=== PATIENT | male | born 1985 | race Caucasian/White ===

== ENCOUNTER 2016-11-25 16:00 | Inpatient (IN) | payer OTHER ==
[~2016-11-25] VITALS: Ht 170.2 cm; Wt 55.3 kg
--- NOTE | ~2016-11-25 | HP ---
Unit #: [id number] #: [id number] Patient: ROMA GARIBAY [id number] [facility] [address] [place] [address] [id number] MR#: [id number] NAME: ROMA GARIBAY ROOM: P110 Age: 31 Sex: M Admission Date: 11/25/2016 : 1985 Attending Physician: Erica Montenegro M.D. Admitting Physician: Erica Montenegro M.D. Primary Care Physician: Primary Care Physician No HISTORY AND PHYSICAL HISTORY OF PRESENT ILLNESS Roma is a 31 year old admitted to [address] [place] [address] with psychotic behavior. He has had other admissions to this facility. PAST MEDICAL HISTORY 1. Long history of polysubstance abuse to include alcohol and cocaine but he denies anything currently. 2. Seizure disorder. PAST SURGICAL HISTORY Nothing reported. ALLERGIES No known drug allergies. SOCIAL HISTORY He smokes 1 pack per day. Drinks alcohol on occasion. Has a history of illicit drug use but denies anything currently. FAMILY HISTORY Medically noncontributory. REVIEW OF SYSTEMS CONSTITUTIONAL: No fever or chills. HEENT: Denies any sore throat, ear pain or runny nose. CARDIOVASCULAR: Denies chest pain, irregular heart rhythm or palpitations. CHEST: Denies shortness of breath or cough. No hemoptysis. GASTROINTESTINAL: Denies nausea, vomiting, diarrhea or chronic constipation. ENDOCRINE: Denies history of increased thirst or urination. No recent significant weight loss or gain. GENITOURINARY: Denies dysuria, frequency, or hematuria. SKIN: Denies any rashes. HEMATOLOGIC: Denies history of increased bleeding or bruising. MUSCULOSKELETAL: Denies any hot, swollen joints. No generalized muscle pain. NEUROLOGIC: Denies problems with vision or speech. No frequent, severe headaches. No numbness, tingling or weakness in any extremities. Denies loss of bladder or bowel control. CURRENT MEDICATIONS 1. Risperdal 1 mg b.i.d. 2. Milk of Magnesia p.r.n. Unit #: [id number] #: [id number] Patient: ROMA GARIBAY 3. Maalox p.r.n. 4. Tylenol p.r.n. 5. Seroquel 100 mg q.h.s. 6. Neurontin 800 mg t.i.d. 7. Nicotine patch 21 mg daily. PHYSICAL EXAMINATION GENERAL: Alert, well-nourished, in no apparent distress. VITAL SIGNS: Blood pressure 110/70, heart rate 70, respirations 16, temperature 98.6. WEIGHT: 122. HEIGHT: 5 feet 7 inches. SKIN: Warm and dry without rash or lesion. HEENT: Normocephalic. TMs not viewed. Oral and nasal passages clear. Conjunctivae clear. PERRLA. EOMs intact. NECK: Supple without lymphadenopathy or thyromegaly. HEART: Regular rate and rhythm without murmur. LUNGS: Clear. ABDOMEN: Soft, nontender. : Not done. EXTREMITIES: No evidence of cyanosis, clubbing or edema. Moves all without focal deficit. NEUROLOGICAL: Grossly within normal limits. Cranial Nerves: II: Visual granado are intact. III, IV AND : Extraocular movements are intact. Pupils are equal, round and reactive to light. V: Facial sensation is grossly normal. VII: Facial movements and expression are normal. VIII: Auditory acuity grossly intact. IX, X: Uvula is midline. Phonation is normal. XI: Patient shrugs shoulders and turns head normally. XII: Tongue protrudes in the midline. Sensory and Motor Function: Sensory and motor sensation is grossly normal. Motor: moves all extremities well. Coordination: Gait is normal. Deep Tendon Reflexes: Intact. IMPRESSION Psychiatric admission. RECOMMENDATIONS PSYCHIATRIC: Per psychiatrist. MEDICAL: See no contraindication to participate in facility's activities. MEDICAL PROGNOSIS Good. MEDICAL CONDITION Stable. Dictated by... Silvia Saleh P.A.-C. for Geronimo Wang/yunier TD: 11/26/2016 18:38 JOB #: [id number] Unit #: [id number] #: [id number] Patient: ROMA GARIBAY HISTORY AND PHYSICAL Page 1 of 1 X Silvia Saleh HISTORY AND PHYSICAL
--- NOTE | ~2016-11-25 | PN ---
Unit #: [id number] #: [id number] Patient: ROMA GARIBAY [id number] [facility] [address] [place] [address] [id number] I MR#: [id number] NAME: ROMA GARIBAY ROOM: [facility] Age: 31 Sex: M Admission Date: 11/25/2016 : 1985 Attending Physician: Erica Montenegro M.D. Admitting Physician: Erica Montenegro M.D. Primary Care Physician: Primary Care Physician Mandie MONTALVO PROGRESS NOTES DATE 11/27/2016 DISCUSSION Mr. Garibay is a 31-year-old, white male who was seen today and chart was reviewed and case was discussed with the staff. He remains anxious, withdrawn and seclusive to himself with bizarre behaviors. Meanwhile, he has been taking the medication and tolerating them fairly well with no reported side effects. MENTAL STATUS EXAM Young white male who was casually dressed with fair personal hygiene, appears to be in no acute distress or discomfort. He was awake and alert on interaction with intact orientation. His mood was anxious with congruent affect. He denies any suicidal or homicidal ideation His insight and judgement remains slightly impaired. TREATMENT PLAN 1. We will continue him on his current medications and treatment protocol. We will monitor his response to the medication and make further adjustments as needed. 2. We will continue to follow up. Dictated by... Geronimo Arroyo/mariah TD: 11/29/2016 02:35 JOB #: [id number] Unit #: [id number] #: [id number] Patient: ROMA GARIBAY PROGRESS NOTES Page 1 of 1 X Erica Montenegro MD PROGRESS NOTE
--- NOTE | ~2016-11-25 | PN ---
Unit #: [id number] #: [id number] Patient: ROMA GARIBAY [id number] [facility] [address] [place] [address] [id number] MR#: [id number] NAME: ROMA GARIBAY ROOM: [facility] Age: 31 Sex: M Admission Date: 11/25/2016 : 1985 Attending Physician: Erica Montenegro M.D. Admitting Physician: Erica Montenegro M.D. Primary Care Physician: Primary Care Physician Mandie MONTALVO PROGRESS NOTES DATE 11/29/2016 DISCUSSION Mr. Beckford is a 31-year-old male, seen on 11/29/2016. The patient interviewed, chart reviewed, and obtained information from the nursing staff. The patient was pleasant and cooperative, reported still hearing voices but making progress. The patient also requested for larger portions. The patient was admitted with auditory hallucinations on November 25, the patient reports voices are still there but denied any command hallucinations, compliant with medication. No side effects to medication. REVIEW OF SYSTEMS Complete review of systems unremarkable. MENTAL STATUS EXAMINATION General appearance: Patient dressed casually. Attention span and concentration, fair. Oriented in place and person. Mood and affect, labile. Speech, monotone. Thought process, concrete. The patient denied any thoughts of harming self or others or any psychotic symptoms. Recent and remote memory, poor. Insight and judgment, poor. The patient reports hallucinations but denied any command hallucinations. DIAGNOSIS Schizophrenia, chronic paranoid type. ASSESSMENT/PLAN Advised to continue with the current medication and therapeutic protocol, and if needed consider further adjustment of medication. Dictated by... Geronimo Martines/jyotsna TD: 12/01/2016 09:05 JOB #: [id number] Unit #: [id number] #: [id number] Patient: ROMA GARIBAY PROGRESS NOTES Page 1 of 1 X Jordon Dunn MD PROGRESS NOTE
--- NOTE | ~2016-11-25 | PA ---
Unit #: [id number] #: [id number] Patient: [facility] [id number] [facility] [address] [place] [address] [id number] I MR#: [id number] NAME: ROMA GARIBAY ROOM: P110 Age: 31 Sex: M Admission Date: 11/25/2016 : 1985 Date of Assessment: 11/26/2016 Attending Physician: Erica Montenegro M.D. Admitting Physician: Erica Montenegro M.D. Primary Care Physician: Primary Care Physician No PSYCHIATRIC ASSESSMENT DATE OF SERVICE 11/26/2016. IDENTIFYING DATA Mr. Garibay is a 31-year-old single white male, who is a resident of [place], [place], and is known to me from previous encounter, was self-referred to the hospital on a voluntary basis and was accompanied by his caser from [facility]. CHIEF COMPLAINT "Suicidal ideation and my plan is to cut my wrist or run out into traffic". HISTORY OF PRESENT ILLNESS Mr. Garibay is a 31-year-old white male with history of mood disorder, who was brought to the hospital by his caser from [facility] and upon presentation, the patient reports suicidal ideation with plan to cut his wrist or run out into traffic and reports that he has not slept in 2 days because he has been having auditory and visual hallucinations over the person called Brandan and Maria Eugenia which are demons and they "tell me to hurt myself, I'm so tired, I just wanted to stop." The patient reports that he has been off his medication for the last 3 weeks and is unable to remember his pharmacy or the medication and denied any substance abuse; however, he was seen to be exhibiting increasing anger, agitation, irritability, racing thoughts, paranoid delusional behavior, auditory and visual hallucinations, and thoughts of wanting to hurt himself and hurt others and as such, recommendation for inpatient level of care for safety and stabilization was made and the patient was transferred to us. SUBSTANCE ABUSE HISTORY The patient denies any alcohol or drug abuse. PAST PSYCHIATRIC HISTORY The patient has a [facility] and review of the medical records indicate currently is not active in any treatment program, is not seeing a psychiatrist, and is not taking any psychotropic medications. PAST MEDICAL HISTORY No acute or chronic medical illnesses. ALLERGIES No known medication allergies. Unit #: [id number] #: [id number] Patient: ROMA GARIBAY CURRENT MEDICATIONS None. PERSONAL AND SOCIAL HISTORY A 31-year-old white male, who reports that he is single, unemployed, and essentially homeless and has poor social support system. MENTAL STATUS EXAMINATION Young white male, who was casually dressed with fair personal hygiene, appears to be in no acute distress or discomfort. He was awake and alert on interaction with intact orientation to time, place, and person. His mood was anxious and depressed with a congruent affect. His speech was slow and restricted in content. His thought processes were disorganized with some looseness of associations and paranoid ideations and delusional behavior. His insight and judgment remain significantly impaired. DIAGNOSTIC IMPRESSION Psychiatric: Chronic paranoid schizophrenia by history. Medical: None. Stressors: Moderate psychosocial stressors. TREATMENT PLAN 1. The patient has presented with history of mood disorder and chronic mental illness and has been decompensating and will need inpatient hospitalization for safety and stabilization. We will start him back on his home medications. We will adjust the medications and monitor response. 2. Supportive therapy was provided to the patient. 3. Safe, structured, and nourishing environment will be provided. ESTIMATED LENGTH OF STAY 5 to 7 days. ABILITY TO HELP SELF Limited. WILLINGNESS TO HELP SELF The patient appears to be willing to help self. STRENGTHS 1. Communicative. 2. Cooperative. PROBLEM LIST 1. Chronic dysphoric symptoms. 2. Poor social support system. DISCHARGE CRITERIA This will be contingent upon the patient's ability to show resolution of his depression and psychosis and his ability to stay safe to himself, particularly after discharge from the hospital. Dictated by... Erica Montenegro M.D. Unit #: [id number] #: [id number] Patient: ROMA GARIBAY IAA/modl TD: 11/26/2016 08:03 JOB #: [id number] PSYCHIATRIC ASSESSMENT Page 1 of 1 X Erica Montenegro MD PSYCHIATRIC ASSESSMENT
--- NOTE | ~2016-11-25 | PN ---
Unit #: [id number] #: [id number] Patient: ROMA GARIBAY [id number] [facility] [address] [place] [address] [id number] I MR#: [id number] NAME: ROMA GARIBAY ROOM: [facility] Age: 31 Sex: M Admission Date: 11/25/2016 : 1985 Attending Physician: Erica Montenegro M.D. Admitting Physician: Erica Montenegro M.D. Primary Care Physician: Primary Care Physician Mandie MONTALVO PROGRESS NOTES DATE November 28, 2016 DISCUSSION Mr. Garibay is a 31-year-old white male, with mood disorder and psychosis, who was seen today and chart was reviewed and the case was discussed with the staff. He has been anxious, withdrawn, and seclusive to himself. He has not shown any agitation or aggression, and has been cooperative with the treatment recommendations and he has been taking the medications and tolerating them fairly well with no reported side effects. MENTAL STATUS EXAMINATION Young white male, who was casually dressed with fair personal hygiene and appears to be in no acute distress or discomfort. He was awake and alert on interaction with intact orientation. His mood is anxious with a congruent affect. His speech is slow and goal-directed. He denies any suicidal or homicidal ideations, and also denies any auditory or visual hallucinations. His insight and judgment remain slightly impaired. TREATMENT PLAN 1. We will continue him on his current medications and treatment protocol, and will monitor his response to the medications, and make further adjustments as needed. 2. We will continue to followup. Dictated by... Geronimo Arroyo/jyotsna TD: 11/29/2016 13:17 JOB #: [id number] Unit #: [id number] #: [id number] Patient: ROMA GARIBAY PROGRESS NOTES Page 1 of 1 X Erica Montenegro MD PROGRESS NOTE
--- NOTE | ~2016-11-25 | DS ---
Unit #: [id number] #: [id number] Patient: ROMA GARIBAY [id number] [facility] [address] [place] [address] [id number] MR#: [id number] NAME: ROMA GARIBAY ROOM: [facility] Age: 31 Sex: M Admission Date: 11/25/2016 : 1985 Discharge Date: 11/30/2016 Attending Physician: Erica Montenegro M.D. Primary Care Physician: Primary Care Physician No DISCHARGE SUMMARY REASON FOR ADMISSION Hallucination. DIAGNOSTIC STUDIES LABORATORY RESULTS: Unremarkable except urine drug screen positive for amphetamine. HOSPITAL COURSE The patient was admitted to inpatient unit on 11/25/2016 and discharged on 11/30/2016. The patient was treated on the inpatient unit with group therapy, individual therapy, expressive therapy, and medication management. The patient was responsive to treatment. Subsequently, the patient was discharged with a plan to follow up in outpatient program. DISCHARGE MEDICATIONS Seroquel 100 mg at bedtime for psychosis, Neurontin 800 mg t.i.d. for anxiety, Risperdal 2 mg at bedtime for psychosis. The patient did not respond with one, therefore needed two antipsychotics. The patient was tried on Seroquel, Risperdal, and Haldol in the past. The patient is not a candidate for clozapine at this time. The patient plan to taper off the Seroquel over the next 6 months. DISCHARGE DIAGNOSES Psychiatric: Schizophrenia, chronic, paranoid type, F20.0. Secondary diagnosis: Deferred. Medical diagnosis: None. Stressors: Psychosocial stressors. DISCHARGE INSTRUCTIONS The patient to follow up in outpatient clinic as per social media marketing manager. CONDITION ON DISCHARGE The patient was pleasant and cooperative. Denied any psychotic symptom or any suicidal ideation. PROGNOSIS Guarded. DIET AND ACTIVITY As tolerated. Unit #: [id number] #: [id number] Patient: ROMA GARIBAY Dictated by..Geronimo Stone/jo TD: 11/30/2016 21:24 JOB #: [id number] DISCHARGE SUMMARY Page 1 of 1 X Jordon Dunn MD X DISCHARGE SUMMARY
[2016-11-30 09:49] LABS: URINE APPEARANCE CLEAR; URINE BILIRUBIN NEG (NEG); URINE BLOOD NEG (NEG); URINE COLOR YELLOW; URINE GLUCOSE NEG (NEG); URINE KETONE TRACE (NEG); URINE LEUKOCYTE ESTERASE NEG (NEG); URINE NITRATE NEG (NEG); URINE PROTEIN NEG (NEG); URINE UROBILINOGEN 0.2 MG/DL (NEG)
[2016-11-30 09:57] LABS: AMPHETAMINE POS (NEG); BARBITURATES NEG (NEG); BENZODIAZEPINES NEG (NEG); COCAINE NEG (NEG); MARIJUANA NEG (NEG); OPIATES NEG (NEG); TRICYCLIC ANTIDEPRESSANTS NEG (NEG); U METHADONE NEG (NEG)
== END 2016-11-30 09:45 | disposition home or self-care (01) | DRG 885 ==
LOC: P1S 19:01
PROVIDERS: Psychiatry & Neurology Psychiatry
DX: F20.0 Paranoid schizophrenia (principal); F17.210 Nicotine dependence, cigarettes, uncomplicated
CPT/HCPCS: 80307; 81003; J3230